=== PATIENT | male | born 1990 | race African-American/Black ===

== ENCOUNTER 2021-12-26 16:51 | Emergency (ER) | payer OTHER ==
[~2021-12-26] VITALS: Ht 180.3 cm; Wt 76.0 kg
[2021-12-26 17:30] VITALS: BP 120/64
[2021-12-26] MEDS ORDERED: IBUPROFEN 600MG TABLET PO ONE (17:30)
[2021-12-26] MEDS ORDERED: IBUP-2029 MT (17:58)
== END 2021-12-26 19:14 | disposition home or self-care (01) ==
LOC: ER 16:51
DX: S93.491A Sprain of other ligament of right ankle, initial encounter (principal); Y08.89XA Assault by other specified means, initial encounter; Y93.89 Activity, other specified; Y92.89 Other specified places as the place of occurrence of the external cause; Y99.8 Other external cause status
CPT/HCPCS: 73590; 73610; 99284; Z7610